=== PATIENT | male | born 1975 | race Caucasian/White ===

== ENCOUNTER 2020-05-31 19:10 | Emergency (ER) | payer SELFPAY ==
[~2020-05-31] VITALS: Ht 182.9 cm; Wt 100.0 kg
[2020-05-31 19:13] VITALS: TEMP 97.3
[2020-05-31 20:05] LABS: BASO # 0.1 (0.0-0.2); BASO % 0.8 % (0.0-2.0); EOS # 0.4 (0.0-0.7); EOS % 3.3 % (0-4.0); GRAN # 6.4 (1.4-6.5); GRAN % 59.4 % (42.2-75.2); HEMATOCRIT 42.2 % (42.0-52.0); HEMOGLOBIN 14.5 g/dl (13.5-18.0); LYMPH # 3.1 (1.2-3.4); LYMPH % 28.9 % (20.0-51.0); MEAN CELL VOLUME 89 fl (80.0-100.0); MEAN CORPUSCULAR HEMOGLOBIN 31 pg (27.0-31.0); MEAN CORPUSCULAR HGB CONC 34 g/dl (33.0-37.0); MEAN PLATELET VOLUME 9.9 fl (7.4-10.4); MONO # 0.8 (0.1-0.6); MONO % 7.2 % (1.7-9.3); PLATELET COUNT 241 K/mm3 (130-400); RED BLOOD COUNT 4.73 M/mm3 (4.20-5.60); REDCELL DISTRIBUTION WIDTH-CV 13.8 % (11.5-14.5)
[2020-05-31 20:23] LABS: COLLECTION METHOD CLEAN CATCH
[2020-05-31 20:24] LABS: ALANINE AMINOTRANSFERASE 34 U/L (4-49); ALBUMIN 4.7 gm/dL (3.5-5.0); ALKALINE PHOSPHATASE 60 U/L (50-136); ANION GAP 12 mmol/L (7-16); AST,SGOT 38 U/L (15-37); BILIRUBIN,TOTAL 0.9 mg/dL (0.0-1.0); BLOOD UREA NITROGEN 16 mg/dL (9-20); CALCIUM 9.3 mg/dL (8.4-10.2); CARBON DIOXIDE 25 mmol/L (22-30); CHLORIDE 105 mmol/L (98-107); CREATININE, serum 0.96 (0.66-1.25); GLUCOSE 101 mg/dL (74-106); POTASSIUM 3.9 mmol/L (3.4-5.0); SODIUM 141 mmol/L (137-145)
[2020-05-31 20:26] LABS: C-REACTIVE PROTEIN < 0.5 mg/dL (0.0-0.9)
[2020-05-31 20:44] LABS: MUCOUS Present /lpf; PH 6 (5-8); SQUAMOUS EPITHELIAL None Seen /hpf; URINE APPEARANCE Cloudy; URINE BACTERIA None Seen /hpf; URINE BILIRUBIN Negative (NEGATIVE); URINE BLOOD 3+ (NEGATIVE); URINE COLOR Amber; URINE GLUCOSE Negative (NEGATIVE); URINE KETONE Negative (NEGATIVE); URINE LEUKOCYTE ESTERASE Negative (NEGATIVE); URINE NITRATE Negative (NEGATIVE); URINE PROTEIN(semi-quant) 2+ (NEGATIVE); URINE RBC >50 /hpf; URINE UROBILINOGEN Negative (NEGATIVE)
[2020-05-31 21:41] VITALS: BP 125/88; PULSE 71
== END 2020-05-31 21:43 | disposition home or self-care (01) ==
LOC: COL.ER 19:10
PROVIDERS: Nurse Practitioner
DX: R10.9 Unspecified abdominal pain (principal); F17.210 Nicotine dependence, cigarettes, uncomplicated
CPT/HCPCS: J1885; J7030

== ENCOUNTER 2020-07-12 01:40 | Observation (INO) | payer OTHER ==
[2020-07-12] VITALS (11 sets, daily range): BP systolic 101–133; BP diastolic 40–90; PULSE 40–66; TEMP 97.3–98.1
[~2020-07-12] VITALS: Ht 188 cm; Wt 101.4 kg
--- NOTE | 2020-07-12 03:28 | NUR ---
Pt arrived to the floor via wheelchair. Pt is currently lying in bed and has his call light within reach.
--- NOTE | 2020-07-12 03:40 | NUR ---
Received report from JORDY Maya. Pt is currently sitting up in bed. Pt stated that his pain is currenty at a 5 out of 10 on the numeric pain scale. Pt has his call light within reach. Pt has his call light within reach and his bed is in lowest position.
--- NOTE | 2020-07-12 06:36 | NUR ---
Pt currently back in bed. Pt ambulated to the restroom and back to bed. Pt stated that with the HERITAGE CONSULTANT his pain is much better. Pt has his call light and his HERITAGE CONSULTANT button within reach.
--- NOTE | 2020-07-12 07:14 | NUR ---
Reported off to JORDY Roth. Pt has his call light and his pain button within reach.
--- NOTE | 2020-07-12 10:20 | NUR ---
Head Esthetician met with patient to discuss discharge planning. Patient lives in [place], [place] with his , Latoya (ph#[phone]) and advised they just moved there from [place]. Patient does not have primary care set up at this time and was interested in a list of local primary care providers. SW provided. Patient obtains medications from [facility] no difficulties. Patient does not use any DME and reports independence with ADLS. Patient states he believes he has completed DPOA-HC paperwork that designates his sister, Ruthann ([id number]#[phone]). Patient is not sure where a copy would be located at this time. Patient plans to return home at discharge with Latoya providing transportation. SW contacted patient's , Latoya who reports they just moved into their new home 2 days ago. Latoya advised about a year ago they moved to [place] from [place], then just moved from [place] to [facility]. Latoya states because they just moved, she is not sure where copy of DPOA-HC would be. Latoya has no concerns about patient returning home whenever he is ready for discharge. SW will continue to follow as needed.
--- NOTE | 2020-07-12 13:02 | NUR ---
Initial visit; Patient thanked Novelties Sales Representative for looking in on him and keeping him in Novelties Sales Representative's prayers.
--- NOTE | 2020-07-12 16:45 | NUR ---
Patient is going to surgery at this time. He has been resting most the day. Denies pain and nausea. His helped him to shower and he brushed his teeth. MONITOR TECH discontinued. Consent signed and on chart. No other changes at this time. Call light within reach.
--- NOTE | 2020-07-12 18:25 | NUR ---
Patient is back from surgery. He is alert and oriented. He stated he is having some slight discomfort to left flank. Ordered him a meal for dinner. Vital signs are stable. Patient will be discharging this evening. No other changes at this time. Call light within reach.
--- NOTE | 2020-07-12 19:45 | NUR ---
Pt. sitting up in bed at this time. Pt. is A&OX3, assessment complete. INT to lt. forearm patent. Pt. reports pain at a 5 on pain scale, will give pain meds per orders. Pt. denies further needs, call light within reach.
--- NOTE | 2020-07-12 20:15 | NUR ---
Pt. has met discharge criteria. Pt. given discharge paperwork, education, scripts, and health summary. Pt. voices understanding of paperwork. Pt. denies questions. INT discontinued from lt. forearm. Pt. getting dressed. Will call when ready.
--- NOTE | 2020-07-12 20:30 | NUR ---
Pt. escorted out by JORDY Roth.
[2020-07-13 01:06] VITALS: BP 124/84; PULSE 43
== END 2020-07-12 20:30 | disposition home or self-care (01) ==
LOC: MEDICAL 01:40 → SURG 02:49
PROVIDERS: ADMIT Urology
DX: N13.2 Hydronephrosis with renal and ureteral calculous obstruction (principal)
CPT/HCPCS: J0690; J1100; J1885; J2270; J2405; J2704; J3010; J7030; J7120; Q9967